=== PATIENT | female | born 1985 | race Caucasian/White ===

== ENCOUNTER → 2019-01-14 14:00 | Outpatient (CLI) | payer OTHER, SELFPAY ==
--- NOTE | 2019-01-14 14:07 | US_ITS ---
STUDY: RENAL ULTRASOUND - COMPLETE REASON FOR EXAM: Female, 33 years old. Enuresis TECHNIQUE: Ultrasound evaluation of the kidneys was performed with real-time and static leonard-scale imaging. COMPARISON: None. FINDINGS: RIGHT KIDNEY: Normal location of the right kidney, which is normal in size. The right kidney measures 9.8 cm in length. There is a normal cortex of the right kidney. There is no right renal mass or cyst. There are no right renal calculi. There is no right hydronephrosis. DISTAL RIGHT URETER: There is a visualized right ureteral jet. LEFT KIDNEY: Normal location of the left kidney, which is normal in size. The left kidney measures 10.2 cm in length. There is a normal cortex of the left kidney. There is no left renal mass or cyst. There are no left renal calculi. There is no left hydronephrosis. DISTAL LEFT URETER: There is a visualized left ureteral jet. BLADDER: The distended urinary bladder has a volume of 288.7 ml. There is no significant post void residual. There is a normal wall thickness of the distended urinary bladder. There is no demonstrated mass within the urinary bladder. There are no demonstrated bladder calculi. US/Kidney and Bladder IMPRESSION: Within normal limits ultrasound of the kidneys and urinary bladder. Electronically Signed: Maite Escalona MD at 16:16 EDT Tel , Service support ,
--- NOTE | 2019-01-14 14:08 | US_ITS ---
STUDY: ULTRASOUND TRANSVAGINAL CLINICAL: Female, 33 years old. Enuresis TECHNIQUE: Transvaginal COMPARISON: None. FINDINGS: Normal uterine size measuring 6.6 cm in maximal craniocaudal dimension. There are no myometrial masses. Normal endometrial thickness measuring 3.8 mm. There are no endometrial masses, and there is no fluid in the endometrial cavity. Normal uterine cervix. Normal right ovary, measuring 1.9 x 1.1 x 2.0 cm. There are multiple follicles without a dominant cyst. Normal left ovary, measuring 2.2 x 1.3 x 3.0 cm. There are multiple follicles without a dominant cyst. There is no free fluid in the pelvis. Polycystic ovary disease: No. US/Pelvic (Non ) IMPRESSION: Within normal limits pelvic ultrasound. Electronically Signed: Maite Escalona MD at 16:31 EDT Tel , Service support ,
--- NOTE | 2019-01-14 14:43 | US_ITS ---
STUDY: ULTRASOUND TRANSVAGINAL CLINICAL: Female, 33 years old. Enuresis TECHNIQUE: Transvaginal COMPARISON: None. FINDINGS: Normal uterine size measuring 6.6 cm in maximal craniocaudal dimension. There are no myometrial masses. Normal endometrial thickness measuring 3.8 mm. There are no endometrial masses, and there is no fluid in the endometrial cavity. Normal uterine cervix. Normal right ovary, measuring 1.9 x 1.1 x 2.0 cm. There are multiple follicles without a dominant cyst. Normal left ovary, measuring 2.2 x 1.3 x 3.0 cm. There are multiple follicles without a dominant cyst. There is no free fluid in the pelvis. Polycystic ovary disease: No. US/Transvaginal Non- IMPRESSION: Within normal limits pelvic ultrasound. Electronically Signed: Maite Escalona MD at 16:31 EDT Tel , Service support ,
== END ==
PROVIDERS: Referring Provider Urology; Visit Provider Urology
DX: N39.44 Nocturnal enuresis (principal)
CPT/HCPCS: 76770; 76830; 76856; 93976